=== PATIENT | male | born 2000 | race Caucasian/White ===

== ENCOUNTER 2022-07-26 14:45 | Emergency (ER) | payer OTHER ==
[~2022-07-26] VITALS: Ht 185.4 cm; Wt 95.3 kg
[2022-07-26 15:35] VITALS: BP_SYST 147
--- NOTE | 2022-07-26 18:10 | NUR ---
Pt brought by self, A&Ox4, pt presents to ER with swelling and pain on L ear, x 2 days, skin pink and warm, cap refill <3, VSS, will cont to monitor
--- NOTE | 2022-07-26 18:30 | NUR ---
Dr Tobias evaluating patient at bedside
[2022-07-26] MEDS ORDERED: KETOROLAC TROMETHAMINE 15 MG VIAL IM ONE (19:30)
--- NOTE | 2022-07-26 21:10 | NUR ---
# 20 gauge angiocath placed to LAC. Use of asceptic technique. Opsite placed over site. Blood return noted. Flushed with 10 cc of normal saline. No evidence of infiltration noted. Patient tolerated well.
[2022-07-26] MEDS ORDERED: KETOROLAC TROMETHAMINE 15 MG VIAL IVP ONE (21:30)
[2022-07-26] MEDS ORDERED: ONDANSETRON HCL 4 MG/2 ML VIAL IVP ONE ×2 (22:00→23:15)
[2022-07-26] MEDS ORDERED: MORPHINE 4 MG INJ. 4 MG/ML VIAL IVP ONE ×2 (22:00→23:15)
[2022-07-26] MEDS ORDERED: CLINDAMYCIN 600 mg/50mL D5W 50 ML IV ONE (22:30)
--- NOTE | 2022-07-26 22:36 | NUR ---
COVID 19 SWAB TEST SAMPLE COLECTED BY EJ MENDOZA AND TAKEN TO THE LAB FOR ANALYSIS
--- NOTE | 2022-07-26 22:36 | NUR ---
ER at bedside examining patienT AND DISCUSSING DISPOSITION
[2022-07-26] MEDS ORDERED: AMPICILLIN SODIUM/SULBACTAM NA 3 GM in NS 100 ML IV ONE (22:45)
[2022-07-26] MEDS ORDERED: AMPICILLIN SODIUM/SULBACTAM NA 3 GM VIAL IM ONE (22:45)
[2022-07-26] MEDS ORDERED: AMPICILLIN SODIUM/SULBACTAM NA 3 GM VIAL ONE (22:49)
[2022-07-26] MEDS ORDERED: DEXAMETHASONE SOD PHOSPHATE 4 MG/ML VIAL IVP ONE (23:15)
[2022-07-26 23:43] LABS: BASOPHILS % (AUTO) 0.1 % (0.0-2.0); HEMATOCRIT 42.9 % (36-54); HEMOGLOBIN 14.5 g/dL (14.0-18.0); LYMPHOCYTES # (AUTO) 0.6 K/uL (1.0-5.5); LYMPHOCYTES % (AUTO) 5.3 % (20.5-51.5); MEAN CORPUSCULAR HEMOGLOBIN 27 pg (27-31); MEAN CORPUSCULAR HGB CONC 34 % (32-36); MEAN CORPUSCULAR VOLUME 81 fL (79.0-98.0); MONOCYTES # (AUTO) 0.9 K/uL (0.0-1.0); MONOCYTES % (AUTO) 7.6 % (1.7-9.3); NEUTROPHILS # (AUTO) 10.1 K/uL (1.8-7.7); PLATELET COUNT (AUTO) 193 K/uL (130-430); RED CELL DISTRIBUTION WIDTH 13.2 % (9.0-15.0); WHITE BLOOD COUNT (AUTO) 11.6 K/uL (4.8-10.8)
[2022-07-26 23:45] LABS: CALCIUM 9.7 mg/dL (8.4-11.0); CREATININE 0.89 mg/dL (0.55-1.30)
[2022-07-26 23:51] LABS: ALBUMIN 4.4 g/dL (3.4-4.8); TOTAL BILIRUBIN 0.7 mg/dL (0.0-1.0)
[2022-07-27] MEDS ORDERED: MORPHINE 4 MG INJ. 4 MG/ML VIAL IVP ONE (02:45)
[2022-07-27] MEDS ORDERED: MORPHINE SULFATE 10 MG/ML VIAL ONE (02:47)
[2022-07-27] MEDS ORDERED: OXYC-128 PO (02:50)
[2022-07-27] MEDS ORDERED: AMOX-423 PO (02:50)
[2022-07-27] MEDS ORDERED: IBUP-1969 PO (02:50)
[2022-07-27] MEDS ORDERED: DEC4 PO (02:55)
[2022-07-27 03:10] VITALS: BP_SYST 139
--- NOTE | 2022-07-27 03:13 | NUR ---
Patient given written and verbal discharge instructions and verbalizes understanding. ER MD discussed with patient the results and treatment provided. Patient in stable condition. ID arm band removed. IV catheter removed intact and dressing applied, no active bleeding. Rx of Augmentin,Decadron,Ibuprofen,Percocet given. Patient educated on pain management and to follow up with PMD. Pain Scale 4/10. Opportunity for questions provided and answered. Medication side effect fact sheet provided.
== END 2022-07-27 03:00 | disposition home or self-care (01) ==
LOC: SED 14:45
DX: H70.002 Acute mastoiditis without complications, left ear (principal); H66.92 Otitis media, unspecified, left ear; H60.502 Unspecified acute noninfective otitis externa, left ear; Z79.899 Other long term (current) drug therapy; Z20.822 Contact with and (suspected) exposure to COVID-19
CPT/HCPCS: 99284; 96365; 96375; 70486; 87426; 80053; 85025; 87040; 36415; 76376; 96376 ×2; 83605; J0295; J1100; J1885; J2405; J2270 ×2; Q9967